=== PATIENT | female | born 1980 | race Caucasian/White ===

== ENCOUNTER 2024-06-12 09:39 | Emergency (ER) | payer MEDICAID, OTHER ==
[~2024-06-12] VITALS: Ht 162.6 cm; Wt 65.3 kg
[2024-06-12] MEDS ORDERED: HYDROCODONE/APAP 5-325MG TABLET ONE (10:12)
[2024-06-12] MEDS ORDERED: IBUPROFEN 400 MG TABLET ONE (10:12)
[2024-06-12] MEDS: IBUPROFEN 400 MG TABLET PO ONE (10:15)
[2024-06-12] MEDS: HYDROCODONE/APAP 5-325MG TABLET PO ONE (10:15)
[2024-06-12 10:56] LABS: BASOPHILS % (AUTO) 0.8 % (0.0-2.0); EOSINOPHILS # (AUTO) 0.1 K/uL (0.0-0.7); EOSINOPHILS % (AUTO) 1.8 % (0.0-7.0); HEMATOCRIT 37.8 % (31.2-41.9); HEMOGLOBIN 12.7 g/dL (10.9-14.3); LYMPHOCYTES # (AUTO) 1.5 K/uL (0.8-4.8); LYMPHOCYTES % (AUTO) 25.7 % (20.5-51.5); MEAN CORPUSCULAR HEMOGLOBIN 30.7 uug (24.7-32.8); MEAN CORPUSCULAR HGB CONC 34 g/dL (32.3-35.6); MEAN CORPUSCULAR VOLUME 91.7 fL (75.5-95.3); MONOCYTES # (AUTO) 0.5 K/uL (0.1-1.30); MONOCYTES % (AUTO) 8.8 % (0.0-11.0); NEUTROPHILS # (AUTO) 3.6 K/uL (1.8-8.9); NEUTROPHILS % (AUTO) 62.9 % (38.5-71.5); PLATELET COUNT (AUTO) 224 K/uL (179-408); RED BLOOD CELL COUNT(AUTO) 4.12 MIL/uL (3.63-4.92); RED CELL DISTRIBUTION WIDTH 13.9 % (12.3-17.7); WHITE BLOOD COUNT (AUTO) 5.8 K/uL (3.8-11.8)
[2024-06-12 11:14] LABS: DIFFERENTIAL COMMENT 1
[2024-06-12 11:20] LABS: CALCIUM 8.9 mg/dL (8.5-10.1); CREATININE 0.7 mg/dL (0.6-1.3); POTASSIUM 4.2 mmol/L (3.5-5.1)
[2024-06-12 11:26] LABS: *BILIRUBIN,URIN NEGATIVE (NEGATIVE); *BLOOD, URINE 2+ (NEGATIVE); *CLARITY,URINE CLOUDY (CLEAR); *COLOR,URINE YELLOW (YELLOW); *KETONES,URINE NEGATIVE (NEGATIVE); *PROTEIN,URINE NEGATIVE (NEGATIVE); *UROBILINOGEN,URINE 0.2 E.U./dl (NORMAL); LEUKOCYTE ESTERASE ,URINE TRACE (NEGATIVE); NITRITE, URINE NEGATIVE (NEGATIVE); PH,URINE 5.5 (5.0-8.0); UGLUCOSE NEGATIVE (NEGATIVE)
[2024-06-12 11:37] LABS: BACTERIA,URINE FEW /HPF (NONE SEEN); RBC,URINE 20-50 /HPF (0-3); SQUAMOUS EPITHELIAL CELL,UR FEW /HPF (NONE SEEN); URINE AMORPHOUS URATE FEW /HPF
[2024-06-12 11:38] LABS: MUCUS,URINE FEW /LPF (0-FEW)
[2024-06-12] MEDS ORDERED: HYDR-3972 PO (11:40)
[2024-06-12] MEDS ORDERED: DICY20TA11 PO (11:40)
[2024-06-12 11:46] VITALS: BP 121/77; O2SAT 99
== END 2024-06-12 11:48 | disposition home or self-care (01) ==
LOC: ER 09:39
DX: R10.30 Lower abdominal pain, unspecified (principal); Z88.8 Allergy status to other drugs, medicaments and biological substances
CPT/HCPCS: 36415; 85025; 87086; A4606; A4663

== ENCOUNTER 2024-07-12 13:59 | Emergency (ER) | payer OTHER ==
[~2024-07-12] VITALS: Ht 162.6 cm; Wt 65.8 kg
[~2024-07-12 13:59] MED LIST: DICY20TA11 PO; HYDR-3972 PO
[2024-07-12] MEDS ORDERED: LORAZEPAM 2 MG/1 ML VIAL ONE (14:27)
[2024-07-12] MEDS: IV NS 1000 ML 1,000 ML IV STA (14:27)
[2024-07-12] MEDS: LORAZEPAM 2 MG/1 ML VIAL IV ONE (14:27)
[2024-07-12 14:35] LABS: BASOPHILS # (AUTO) 0.1 K/UL (0.0-0.2); BASOPHILS % (AUTO) 1.3 % (0.0-2.0); DIFFERENTIAL COMMENT 1; EOSINOPHILS # (AUTO) 0.1 K/uL (0.0-0.7); EOSINOPHILS % (AUTO) 2.6 % (0.0-7.0); HEMATOCRIT 35.1 % (31.2-41.9); HEMOGLOBIN 12.1 g/dL (10.9-14.3); LYMPHOCYTES # (AUTO) 1.4 K/uL (0.8-4.8); MEAN CORPUSCULAR HEMOGLOBIN 31.5 uug (24.7-32.8); MEAN CORPUSCULAR HGB CONC 34 g/dL (32.3-35.6); MEAN CORPUSCULAR VOLUME 91.7 fL (75.5-95.3); MONOCYTES # (AUTO) 0.4 K/uL (0.1-1.30); MONOCYTES % (AUTO) 8.6 % (0.0-11.0); NEUTROPHILS # (AUTO) 3.2 K/uL (1.8-8.9); NEUTROPHILS % (AUTO) 60.5 % (38.5-71.5); PLATELET COUNT (AUTO) 251 K/uL (179-408); RED BLOOD CELL COUNT(AUTO) 3.83 MIL/uL (3.63-4.92); RED CELL DISTRIBUTION WIDTH 13.6 % (12.3-17.7); WHITE BLOOD COUNT (AUTO) 5.2 K/uL (3.8-11.8)
[2024-07-12 14:49] LABS: ALBUMIN 3.4 g/dL (3.4-5.0); BILIRUBIN,DIRECT 0.1 mg/dL (0.0-0.2); BILIRUBIN,TOTAL 0.2 mg/dL (0.2-1.0); CALCIUM 8.7 mg/dL (8.5-10.1); CREATININE 0.6 mg/dL (0.6-1.3); POTASSIUM 3.6 mmol/L (3.5-5.1); TOTAL PROTEIN, SERUM 6.7 g/dL (6.4-8.2)
[2024-07-12 14:50] LABS: *BILIRUBIN,URIN NEGATIVE (NEGATIVE); *BLOOD, URINE 3+ (NEGATIVE); *CLARITY,URINE CLEAR (CLEAR); *COLOR,URINE YELLOW (YELLOW); *KETONES,URINE NEGATIVE (NEGATIVE); *PROTEIN,URINE NEGATIVE (NEGATIVE); *UROBILINOGEN,URINE 0.2 E.U./dl (NORMAL); LEUKOCYTE ESTERASE ,URINE NEGATIVE (NEGATIVE); NITRITE, URINE NEGATIVE (NEGATIVE); PH,URINE 5.5 (5.0-8.0); UGLUCOSE NEGATIVE (NEGATIVE)
[2024-07-12 14:55] LABS: *URINE HCG, QUAL NEGATIVE (NEGATIVE)
[2024-07-12 15:04] LABS: BACTERIA,URINE FEW /HPF (NONE SEEN); RBC,URINE 50-80 /HPF (0-3); SQUAMOUS EPITHELIAL CELL,UR FEW /HPF (NONE SEEN); WBC,URINE 0-3 /HPF (0-3)
[2024-07-12] MEDS ORDERED: DIPH1TAB PO (16:29)
[2024-07-12] MEDS ORDERED: LORA0.5T48 PO (16:29)
[2024-07-12 17:18] VITALS: BP 127/76; TEMP 97.6; O2SAT 97
== END 2024-07-12 17:20 | disposition home or self-care (01) ==
LOC: ER 13:59
DX: K58.0 Irritable bowel syndrome with diarrhea (principal); R19.7 Diarrhea, unspecified; F43.9 Reaction to severe stress, unspecified
CPT/HCPCS: 99283; 96374; 96361; 80076; 80048; 81001; 84703; 83690; 85025; 36415; 83605; J2060; J7040 ×2; A4606; A4663

== ENCOUNTER 2024-08-23 14:51 | Emergency (ER) | payer MEDICAID, OTHER ==
[~2024-08-23] VITALS: Ht 162.6 cm; Wt 68.0 kg
[~2024-08-23 14:51] MED LIST changes: +DIPH1TAB PO; +LORA0.5T48 PO
[2024-08-23] MEDS: OXYCODONE HCL 5 MG TABLET PO ONE (15:50)
[2024-08-23] MEDS: LORAZEPAM 0.5 MG TABLET PO ONE (16:46)
[2024-08-23] MEDS ORDERED: LORAZEPAM 0.5 MG TABLET ONE (16:46)
[2024-08-23] MEDS ORDERED: HYDR-3980 PO (18:30)
[2024-08-23] MEDS ORDERED: LORA0.5T48 PO (18:30)
[2024-08-23 19:04] VITALS: BP 124/92; TEMP 98.6; O2SAT 97
== END 2024-08-23 19:04 | disposition home or self-care (01) ==
LOC: ER 14:51
DX: M54.50 Low back pain, unspecified (principal); M25.552 Pain in left hip; K58.9 Irritable bowel syndrome, unspecified; Z90.49 Acquired absence of other specified parts of digestive tract; Z88.8 Allergy status to other drugs, medicaments and biological substances; W18.2XXA Fall in (into) shower or empty bathtub, initial encounter; Y93.E1 Activity, personal bathing and showering; Y92.89 Other specified places as the place of occurrence of the external cause; Y99.8 Other external cause status
CPT/HCPCS: 72131; 72192; A4606; A4663

== ENCOUNTER 2024-11-05 09:15 | Emergency (ER) | payer OTHER ==
[~2024-11-05] VITALS: Ht 162.6 cm; Wt 70.3 kg
[~2024-11-05 09:15] MED LIST changes: +HYDR-3980 PO
[2024-11-05] MEDS ORDERED: ACETAMINOPHEN 500 MG TABLET PO ONE (09:30)
[2024-11-05] MEDS ORDERED: ACETAMINOPHEN 500 MG TABLET ONE (09:31)
[2024-11-05 09:39] LABS: *BILIRUBIN,URIN NEGATIVE (NEGATIVE); *BLOOD, URINE 3+ (NEGATIVE); *CLARITY,URINE CLEAR (CLEAR); *COLOR,URINE YELLOW (YELLOW); *KETONES,URINE NEGATIVE (NEGATIVE); *PROTEIN,URINE NEGATIVE (NEGATIVE); *UROBILINOGEN,URINE 0.2 E.U./dl (NORMAL); LEUKOCYTE ESTERASE ,URINE NEGATIVE (NEGATIVE); NITRITE, URINE NEGATIVE (NEGATIVE); UGLUCOSE NEGATIVE (NEGATIVE)
[2024-11-05 09:42] LABS: *URINE HCG, QUAL NEGATIVE (NEGATIVE)
[2024-11-05] MEDS: IV NORMAL SALINE 1000 ML BAG IV ONE (09:58)
[2024-11-05 10:02] LABS: PLATELET COUNT (AUTO) 175 K/uL (179-408); RED BLOOD CELL COUNT(AUTO) 4.34 MIL/uL (3.63-4.92); RED CELL DISTRIBUTION WIDTH 13.3 % (12.3-17.7); WHITE BLOOD COUNT (AUTO) 4.6 K/uL (3.8-11.8)
[2024-11-05 10:13] LABS: ASPARTATE AMINOTRANSFERASE 24.0 U/L (15-37); CREATININE 0.6 mg/dL (0.6-1.3); SODIUM SERUM 134.0 mmol/L (136-145); TOTAL PROTEIN, SERUM 7.6 g/dL (6.4-8.2); UREA NITROGEN, BLOOD 13.0 mg/dL (7-18)
[2024-11-05 10:21] LABS: SQUAMOUS EPITHELIAL CELL,UR FEW /HPF (NONE SEEN)
[2024-11-05] MEDS ORDERED: IBUPROFEN 600 MG TABLET ONE (10:24)
[2024-11-05] MEDS: IBUPROFEN 600 MG TABLET PO ONE (10:29)
[2024-11-05] MEDS ORDERED: HYDROCODONE/APAP 5-325MG TABLET ONE (11:43)
[2024-11-05] MEDS: HYDROCODONE/APAP 5-325MG TABLET PO ONE (11:47)
[2024-11-05] MEDS ORDERED: HYDR-4209 PO (11:51)
[2024-11-05 12:23] VITALS: BP 103/59; TEMP 97.8; O2SAT 98
== END 2024-11-05 12:11 | disposition home or self-care (01) ==
LOC: ER 09:15
DX: G89.29 Other chronic pain (principal); M54.50 Low back pain, unspecified; N28.1 Cyst of kidney, acquired; R30.0 Dysuria; K58.0 Irritable bowel syndrome with diarrhea; R10.10 Upper abdominal pain, unspecified; Z90.49 Acquired absence of other specified parts of digestive tract; Z90.79 Acquired absence of other genital organ(s); Z88.8 Allergy status to other drugs, medicaments and biological substances
CPT/HCPCS: 99284; 74176; 96360; 80076; 80048; 81001; 84703; 83690; 85025; 36415; J7040; A4606; A4663; A9150

== ENCOUNTER 2024-12-06 11:54 | Emergency (ER) | payer OTHER ==
[~2024-12-06] VITALS: Ht 162.6 cm; Wt 72.6 kg
[~2024-12-06 11:54] MED LIST changes: +HYDR-4209 PO
[2024-12-06 12:18] LABS: *BILIRUBIN,URIN NEGATIVE (NEGATIVE); *BLOOD, URINE 2+ (NEGATIVE); *CLARITY,URINE CLOUDY (CLEAR); *COLOR,URINE YELLOW (YELLOW); *KETONES,URINE NEGATIVE (NEGATIVE); *PROTEIN,URINE NEGATIVE (NEGATIVE); *UROBILINOGEN,URINE 0.2 E.U./dl (NORMAL); LEUKOCYTE ESTERASE ,URINE 3+ (NEGATIVE); NITRITE, URINE POSITIVE (NEGATIVE); UGLUCOSE NEGATIVE (NEGATIVE)
[2024-12-06 12:23] LABS: SQUAMOUS EPITHELIAL CELL,UR FEW /HPF (NONE SEEN)
[2024-12-06 13:19] LABS: PLATELET COUNT (AUTO) 224 K/uL (179-408); RED BLOOD CELL COUNT(AUTO) 4.30 MIL/uL (3.63-4.92); RED CELL DISTRIBUTION WIDTH 12.7 % (12.3-17.7); WHITE BLOOD COUNT (AUTO) 7.5 K/uL (3.8-11.8)
[2024-12-06 13:27] LABS: CREATININE 0.6 mg/dL (0.6-1.3); SODIUM SERUM 138 mmol/L (136-145); UREA NITROGEN, BLOOD 9 mg/dL (7-18)
[2024-12-06 13:36] LABS: ASPARTATE AMINOTRANSFERASE 28 U/L (15-37); PREGNANCY TEST SERUM QUAN 4 miul/L (0-6); TOTAL PROTEIN, SERUM 7.6 g/dL (6.4-8.2)
[2024-12-06] MEDS ORDERED: DICYCLOMINE HCL 10 MG CAPSULE PO STA (14:10)
[2024-12-06] MEDS ORDERED: DICYCLOMINE HCL LIQ 10 MG/5 ML UDC ONE (14:14)
[2024-12-06] MEDS ORDERED: DICYCLOMINE HCL 20 MG TABLET ONE (14:24)
[2024-12-06] MEDS: DICYCLOMINE HCL 20 MG TABLET PO STA (14:26)
[2024-12-06] MEDS ORDERED: DICY20TA11 PO (14:45)
[2024-12-06] MEDS ORDERED: NITR100C11 PO (14:45)
[2024-12-06 15:05] VITALS: BP 134/73; TEMP 98.6; O2SAT 98
== END 2024-12-06 15:18 | disposition home or self-care (01) ==
LOC: ER 11:54
DX: N39.0 Urinary tract infection, site not specified (principal); K58.9 Irritable bowel syndrome, unspecified; R10.2 Pelvic and perineal pain; Z90.49 Acquired absence of other specified parts of digestive tract; Z90.79 Acquired absence of other genital organ(s); Z88.8 Allergy status to other drugs, medicaments and biological substances
CPT/HCPCS: 36415; 76856; 83690; 84484; 85025; 85730; 87077; 87086; A4606; A4663